=== PATIENT | male | born 1975 | race American Indian/Alaskan Native ===

== ENCOUNTER 2019-03-29 14:12 | Emergency (ER) | payer OTHER ==
[2019-03-29 14:18] VITALS: BP 133/93
--- NOTE | 2019-03-29 15:32 | Emergency Department Report ---
Chief Complaint: Medical Clearance Stated Complaint: HEALTH ISSUES Time Seen by Provider: 03/29/19 15:27 - HPI History of Present Illness: This is a 44 y.o. M. that presents to the ER with erectile disfunction. Patient reports complications for 3 months. Denies any other symptoms. - ROS Review of Systems: General cc: Erectile disfunction All other symptoms reviewed and no complaints. - Exam Vital Signs: Vital Signs 03/29/19 14:16 Temperature 98.0 F Pulse Rate 97 H Respiratory 18 Rate Blood Pressure 133/93 O2 Sat by Pulse 95 Oximetry Physical Exam: All symptoms reviewed and WNL. MSE screening note: Focused history and physical exam performed. Due to findings the following was ordered: ED Medical Decision Making - Medical Decision Making This is a 44 y.o. M. that presents withe erectile dysfunction for 3 months. Vitals are stable. Patient is nontoxic appearing and in no acute distress. Patient denies any other complaints. This is a non-emergent complaint. Patient given referrals to PCP for follow up. Patient discharged home stable. ED Disposition [place] [facility] [place]position: MED SCREENING EXAM-LEFT Condition: Stable Instructions: Erectile Dysfunction (ED) Referrals: [facility] [Outside] - 3-5 Days [facility] [Outside] - 3-5 Days [facility] [Outside] - 3-5 Days DC LUNDBERG MD [Staff Physician] - 3-5 Days Forms: Work/School Release Form(ED) Time of Disposition: 15:31
== END 2019-03-29 15:57 | disposition left against medical advice (07) ==
LOC: ED 14:12
DX: N52.9 Male erectile dysfunction, unspecified (principal)
CPT/HCPCS: 99281

== ENCOUNTER 2020-05-26 17:42 | Emergency (ER) | payer SELFPAY ==
[2020-05-26] MEDS ORDERED: ACETAMINOPHEN 500 MG TAB PO ONE (19:37)
[2020-05-26] MEDS ORDERED: diazePAM 5 MG TAB PO ONE ×2 (19:38→20:49)
[2020-05-26 19:41] VITALS: BP 151/100
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
== END 2020-05-26 23:00 | disposition home or self-care (01) ==
LOC: ED 17:42
DX: S66.911A Strain of unspecified muscle, fascia and tendon at wrist and hand level, right hand, initial encounter (principal); M62.830 Muscle spasm of back; Z79.899 Other long term (current) drug therapy; V49.49XA Driver injured in collision with other motor vehicles in traffic accident, initial encounter; Y93.89 Activity, other specified; Y92.488 Other paved roadways as the place of occurrence of the external cause; Y99.8 Other external cause status
CPT/HCPCS: 70450; 72100; 72125

== ENCOUNTER 2021-08-03 11:42 | Outpatient (CLI) | payer MEDICARE, OTHER ==
[2021-08-03 12:18] LABS: Basophils % (Auto) 0.5 % (0.0-1.8); Eosinophils % (Auto) 0.9 % (0.0-4.3); Hematocrit 45.9 % (35.5-45.6); Hemoglobin 15.5 gm/dl (11.8-15.2); Lymphocytes # (Auto) 1.8 K/mm3 (1.2-5.4); Lymphocytes % (Auto) 42.1 % (13.4-35.0); Mean Corpuscular HGB Conc 34 % (32-34); Mean Corpuscular Volume 96 fl (84-94); Monocytes # (Auto) 0.5 K/mm3 (0.0-0.8); Monocytes % (Auto) 11.8 % (0.0-7.3); Platelet Count 166 K/mm3 (140-440); Red Blood Count 4.77 M/mm3 (3.65-5.03); Red Cell Distribution Width 12.6 % (13.2-15.2)
[2021-08-03 12:35] LABS: Alanine Aminotransferase 43 units/L (7-56); Albumin 4.7 g/dL (3.9-5); BUN/Creatinine Ratio 12; Blood Urea Nitrogen 17 mg/dL (9-20); Calcium 9.8 mg/dL (8.4-10.2); Chol/HDL Ratio 6.62 %; HDL Cholesterol 40 mg/dL (40-59); Hemolysis Index 21; LDL Cholesterol,Direct 179 mg/dL (50-130)
[2021-08-06 16:13] LABS: Vitamin D, 25-OH, D2 <4 ng/mL
== END 2021-08-03 11:43 | disposition home or self-care (01) ==
LOC: LABHHL 11:42
PROVIDERS: ATTEND Internal Medicine
DX: E55.9 Vitamin D deficiency, unspecified (principal); R73.9 Hyperglycemia, unspecified; E78.5 Hyperlipidemia, unspecified; R63.5 Abnormal weight gain; N52.9 Male erectile dysfunction, unspecified
CPT/HCPCS: 36415; 80053; 80061; 82306; 83036; 84403; 84443; 85025